=== PATIENT | female | born 1980 | race Two or more races ===

== ENCOUNTER 2023-04-18 12:09 | Emergency (ER) | payer BC ==
[~2023-04-18] VITALS: Ht 167.6 cm; Wt 86.2 kg
[2023-04-18] MEDS ORDERED: PRILOSEC10 MG PO (12:53)
[2023-04-18] MEDS ORDERED: INOSITOL650 MG PO (12:55)
[2023-04-18] MEDS ORDERED: MAGNESIUM250 M1 PO (12:55)
[2023-04-18] MEDS ORDERED: FISH OIL 1,0001 EAC3 PO (12:55)
[2023-04-18] MEDS ORDERED: ATIVAN0.5 M1 PO (12:56)
[2023-04-18] MEDS ORDERED: MELATONIN1 MG PO (12:56)
[2023-04-18] MEDS ORDERED: TRAMADOL HCL E100 M1 (12:57)
[2023-04-18] MEDS ORDERED: XYZAL5 MG PO (12:57)
[2023-04-18] MEDS ORDERED: COENZYME Q10100 M2 PO (12:58)
[2023-04-18] MEDS ORDERED: VITAMIN D325 MC2 PO (12:59)
== END 2023-04-18 14:58 | disposition home or self-care (01) ==
LOC: ER 12:09
DX: R07.89 Other chest pain (principal); Z91.041 Radiographic dye allergy status